=== PATIENT | female | born 1970 | race American Indian/Alaskan Native ===

== ENCOUNTER 2016-07-15 08:51 | Day surgery (SDC) | payer MEDICARE ==
[2016-07-13 11:10] LABS: Basophils % (Auto) 0.2 % (0.0-1.8); Eosinophils % (Auto) 3.3 % (0.0-4.3); Hematocrit 33.4 % (30.3-42.9); Hemoglobin 10.7 gm/dl (10.1-14.3); Mean Corpuscular HGB Conc 32 % (30-34); Mean Corpuscular Volume 79 fl (79-97); Platelet Count 257 K/mm3 (140-440); Red Blood Count 4.23 M/mm3 (3.65-5.03); Red Cell Distribution Width 15.8 % (13.2-15.2); White Blood Count 7.6 K/mm3 (4.5-11.0)
[2016-07-13 11:12] LABS: Mean Corpuscular Hemoglobin 25 pg (28-32)
[2016-07-13 11:28] LABS: Alanine Aminotransferase 16 units/L (7-56); Albumin 3.8 g/dL (3.9-5); Albumin/Globulin Ratio 1.3 %; Alkaline Phosphatase 82 units/L (35-129); Anion Gap 16 mmol/L; Bilirubin,Total 0.2 mg/dL (0.1-1.2); Blood Urea Nitrogen 10 mg/dL (7-17); Calcium 8.6 mg/dL (8.4-10.2); Carbon Dioxide 25 mmol/L (22-30); Chloride 106.3 mmol/L (98-107); Glucose 80 mg/dL (65-100); Potassium 3.5 mmol/L (3.6-5.0); Sodium 144 mmol/L (137-145); Total Protein 6.8 g/dL (6.3-8.2)
--- NOTE | 2016-07-13 11:37 | Anesthesia Consultation ---
<WENDI DAVIS - Last Filed: 07/13/16 11:34> Anesthesia Consult and Med Hx Date of service: 07/13/16 - Airway Anesthetic Teeth Evaluation: Good ROM Head & Neck: Adequate Mental/Hyoid Distance: Adequate Mallampati Class: Class I Intubation Access Assessment: Probably Good - Pulmonary Exam CTA: Yes - Cardiac Exam Cardiac Exam: RRR - Pre-Operative Health Status ASA Pre-Surgery Classification: ASA3 Proposed Anesthetic Plan: General - Pulmonary Hx Asthma: Yes (uses o2 @2l/min via nc at night) SOB: Yes (with movement/exercise) COPD: Yes Home Oxygen Therapy: Yes (every night, daytime use as needed) Hx Pneumonia: Yes (01/2016 was hospitalized) Hx Sleep Apnea: No (cannot lay flat) - Cardiovascular System Hx Hypertension: Yes (x 4-5 yrs) Hx Coronary Artery Disease: Yes Hx Angina: Yes (negative stress test 2013 as per pt) Hx Cardia Arrhythmia: Yes (occasional palpitations and tachycardia) Hx Heart Murmur: Yes - Central Nervous System Hx Neuromuscular Disorder: Yes (Lupus; peudotumor cerebri) Hx Seizures: No CVA: Yes (TIA 10 years agot) Hx Back Pain: Yes Hx Psychiatric Problems: Yes - Gastrointestinal Hx Gastroesophageal Reflux Disease: Yes (with certain foods) - Endocrine Hx Insulin Dependent Diabetes: Yes - Hematic Hx Anemia: Yes - Other Systems Hx Cancer: No - Additional Comments Anesthesia Medical History Comments: Lupus <MACK GREER - Last Filed: 07/15/16 09:24> Anesthesia Consult and Med Hx - Cardiac Exam Anesthetic Concerns: Patient is on chronic steroid therapy and will recieve periop steroid coverage.
[2016-07-15] MEDS ORDERED: DILAUDID IV PRN (09:22)
[2016-07-15] MEDS ORDERED: NORCO 5/325 PO PRN (09:22)
[2016-07-15] MEDS ORDERED: ZOFRAN IV PRN (09:22)
--- NOTE | 2016-07-15 09:26 | Anesthesia Day of Surgery ---
Anesthesia Day of Surgery - Day of Surgery Patient Examined: Yes Patient H&P Reviewed: Yes Patient is NPO: Yes Beta Blockers: No (No longer taking beta blockers)
--- NOTE | 2016-07-15 09:37 | Short Stay Summary ---
Short Stay Documentation Date of service: 07/15/16 Narrative H&P: 46y/o with chronic right sided pelvic pain. Pelvic ultrasound demonstrates a small right ovarian mass. Patient reports worsening of her pain and discomfort. - History Principal diagnosis: Chronic pelvic pain; Adnexal mass Past Medical History: arthritis, diabetes, hypertension, other (lupus; fibromyalgia;asthma) Past Surgical History: cholecystectomy, hernia repair, Other ([place]; BTL) Social history: single - Allergies and Medications Current Medications: Allergies No Known Allergies Allergy (Verified 07/08/16 15:53) Home Medications Medication Instructions Recorded Confirmed Last Taken Type Gabapentin [Neurontin] 300 mg PO BID 10/16/13 07/08/16 05/31/14 21:00 History 300 MG Hydroxychloroquine [Plaquenil] 200 mg PO BID 10/16/13 07/08/16 06/01/14 05:30 History 200 MG Metoprolol [Lopressor TAB] 25 mg PO BID 10/16/13 07/08/16 06/01/14 05:30 History 25 MG Pantoprazole [Protonix TAB] 40 mg PO BID 10/16/13 07/08/16 06/01/14 05:30 History 40 MG Potassium Chloride 20 meq PO BID 10/16/13 07/08/16 05/31/14 21:00 History 20 meq Promethazine [Phenergan TAB] 25 mg PO BID 10/16/13 07/08/16 06/01/14 05:30 History 25 MG Simvastatin [Zocor TAB] 40 mg PO QDAY 10/16/13 07/08/16 05/31/14 21:00 History 40 mg hydrOXYzine HCL [Atarax] 25 mg PO BID 10/16/13 07/08/16 05/31/14 21:00 History 25 mg predniSONE [Deltasone] 40 mg PO BID 10/16/13 07/08/16 05/31/14 21:00 History 40 mg ALBUTEROL NEB's [Proventil 0.083% 2.5 mg IH TID 10/27/13 07/08/16 05/31/14 21: 00 History NEBS] 2.5 MG Fluticasone/Salmeterol [Advair 2 puff IH BID 10/27/13 07/08/16 06/01/14 05:30 History Diskus 500-50 mcg] 2 puffs ALPRAZolam [Xanax TAB] 0.5 mg PO TID 05/29/14 07/08/16 05/31/14 21:00 History 0.5 MG Butalb/Acetaminophen/Caffeine 1 cap PO Q4HR PRN 05/29/14 07/08/16 05/31/14 21: 00 History [Fioricet 50-300-40 mg CAP] 1 CAP Furosemide [Lasix] 40 mg PO DAILY 05/29/14 07/08/16 05/31/14 21:00 History 40 MG Oxycodone HCl [OxyCONTIN] 15 mg PO Q6HR 05/29/14 07/08/16 06/01/14 05:30 History 15 MG Topiramate [Topamax TAB] 50 mg PO HS 05/29/14 07/08/16 05/31/14 21:00 History 50 MG Verapamil HCl 180 mg PO DAILY 05/29/14 07/08/16 06/01/14 05:30 History 180 MG acetaZOLAMIDE [Diamox TAB] 250 mg PO QDAY 05/29/14 07/08/16 05/31/14 21:00 History 250 MG Carisoprodol [Soma] 350 mg PO TID 06/01/14 07/08/16 05/31/14 21:00 History 350 mg oxyCODONE /ACETAMINOPHEN [Percocet 2 tab PO Q6H PRN #30 tablet 06/07/14 Unknown Rx 5/325 mg] Insulin Aspart Prot/Aspart(Nf) 1 units SQ CONT 07/08/16 07/08/16 Unknown History [Novolog Mix 70/30] Active Medications Acetaminophen/Hydrocodone Bitart ([place] 5/325) 2 each PO ONCE PRN PRN Reason: Pain, Moderate (4-6) Stop: 07/15/16 18:00 Famotidine (Pepcid) 20 mg IV PREOP NR Stop: 07/15/16 23:59 Hydromorphone HCl (Dilaudid) 0.5 mg IV Q10MIN PRN PRN Reason: Pain , Severe (7-10) Stop: 07/15/16 18:00 Sodium Chloride (Nacl 0.9% 1000 Ml) 1,000 mls @ 100 mls/hr IV DIRECT SCOTT Methylprednisolone Sodium Succinate (Solu-Medrol) 125 mg IV PREOP NR Stop: 07/15/16 23:59 Midazolam HCl (Versed) 2 mg IV PREOP NR Stop: 07/15/16 23:59 Ondansetron HCl (Zofran) 4 mg IV ONCE PRN PRN Reason: Nausea And Vomiting Stop: 07/15/16 09:23 - Physical exam General appearance: no acute distress Integumentary: no rash HEENT: Atraumatic Lungs: Clear to auscultation Breasts: deferred, mass Gastrointestinal: normal Female Genitourinary: deferred Rectal Exam: deferred - Brief post op/procedure progress note Date of procedure: 07/15/16 Pre-op diagnosis: pelvic pain; right adnexal mass Post-op diagnosis: same Procedure: Laparoscopy Right salpingo-oophorectomy Left ovarian cystectomy Anesthesia: GETA Surgeon: MILTON DUPONT Estimated blood loss: minimal Pathology: list (right ovary and tube; left ovarian cyst) Specimen disposition: to lab Condition: stable - Hospital course Hospital course: The patient was admitted the day of surgery underwent a laparoscopy and right salpingo-oophorectomy. Please see operative note for details of surgery. The patient was discharged when she met discharge criteria. Her postoperative course was uneventful. - Disposition Condition at discharge: Good Disposition: DISCHARGED TO HOME OR SELFCARE Short Stay Discharge Plan Activity: other (pelvic rest for 1 week) Diet: diabetic Additional Instructions: Follow-up in 2-[address] Garcia Prescriptions: Ibuprofen [Motrin] 800 mg PO Q8HR PRN #60 tablet PRN Reason: Pain oxyCODONE /ACETAMINOPHEN [Percocet 5/325] 1 tab PO Q6HR PRN #30 tablet PRN Reason: Pain
[2016-07-15] MEDS ORDERED: SUBLIMAZE ONE (10:00)
[2016-07-15] MEDS ORDERED: DIPRIVAN 10 MG/ML IV ONE (10:00)
[2016-07-15] MEDS ORDERED: VERSED IV NR (10:00)
[2016-07-15] MEDS ORDERED: XYLOCAINE MPF 2% ONE (10:00)
[2016-07-15] MEDS ORDERED: PEPCID IV NR (10:00)
[2016-07-15] MEDS ORDERED: NACL 0.9% 1000 ML 1,000 ML IV SCH (10:00)
[2016-07-15] MEDS ORDERED: ZEMURON IV ONE (10:00)
[2016-07-15] MEDS ORDERED: NEO SYNEPHRINE/NS Syringe(OR USE) IV ONE (10:48)
[2016-07-15] MEDS ORDERED: QUELICIN ONE (11:05)
[2016-07-15] MEDS ORDERED: ROBINUL ONE ×2 (11:20)
[2016-07-15] MEDS ORDERED: NEOSTIGMINE ONE (11:20)
[2016-07-15] MEDS ORDERED: DILAUDID ONE (11:24)
[2016-07-15] MEDS ORDERED: MARCAINE 0.5% 30 ML INFILTRATI ONE (11:24)
[2016-07-15] MEDS ORDERED: NACL 0.9% IR ONE (11:44)
[2016-07-15] MEDS ORDERED: MARCAINE 0.5% INFILTRATI ONE (11:44)
[2016-07-15] MEDS ORDERED: NACL 0.9% 1000 ML 1,000 ML ONE (12:17)
[2016-07-15] MEDS ORDERED: TORADOL ONE (12:22)
--- NOTE | 2016-07-15 12:49 | Operative Report ---
Operative Report Operative Report: Date of surgery: 07/15/2016 Preoperative diagnosis: Chronic pelvic pain; right adnexal mass Postoperative diagnosis: Same as above; left ovarian cyst Procedure: Laparoscopy; right salpingo-oophorectomy; left ovarian cystectomy Surgeon: Shelia Garcia M.D. Anesthesia: General endotracheal anesthesia Estimated blood loss: Minimal Findings: Right tube and ovary densely adherent to the right pelvic sidewall; a hemorrhagic left ovarian cyst Pathology: Right tube and ovary; left ovarian cyst Indication: 46-year-old with a history of chronic pelvic pain occurring on the right side. The patient elected to undergo removal of her right tube and ovary. Procedure: The patient was taken to the operating room and given general endotracheal anesthesia without complication. The patient is prepped and draped in a normal sterile fashion. A sponge stick was placed in the patient's vagina secondary to her history of a prior total abdominal hysterectomy. Attention was then turned to the patient's abdomen where a 5 mm infraumbilical skin incision was then made. A Veress needle was placed and peritoneal entry was verified water-filled syringe. Insufflation of the peritoneal cavity was performed with CO2 gas. A 5 mm trocar was placed and the laparoscope was then inserted. The patient was then placed in Trendelenburg. A 5 mm suprapubic skin incision was then made. Under direct visualization a 5 mm trocar was then placed. General survey of the patient's abdomen revealed a shunt in place; left ovarian hemorrhagic cyst; adherent right adnexa to the right pelvic sidewall. An additional left lateral 10 mm trocar was then placed under direct visualization. The right ovary and 2 were related with a grasper. A LigaSure device was used in order to coagulate the infundibulopelvic ligament. As noted the adnexa was adherent to the right pelvic sidewall. Sharp dissection had to be performed with the monopolar scissors in order to release the adnexa from the right pelvic sidewall and vaginal cuff. An Endo Catch bag was then placed through the 10 mm trocar. The tube and ovary were then removed and the Endo Catch bag. The left ovary was then grasped. The monopolar scissors were then used to remove the left hemorrhagic cyst. The cyst wall was sent to pathology. A Soto Huff was used in order to close the fascia of the 10 mm incision. The 5 mm trocar was then removed. The pneumoperitoneum was then released. The 5 mm trocar laparoscope was then removed. The skin incisions were then closed with 4-0 Monocryl. The incisions were injected with quarter percent Marcaine. Dressings were applied to the incision. The vaginal instruments were then removed atraumatically. Then successfully extubated and taken to the recovery room. All sponge laps and needle counts were correct 2.
--- NOTE | 2016-07-15 13:22 | Post Anesthesia Evaluation ---
- Post Anesthesia Evaluation Patient Participated: Yes Airway Patent: Yes Stable Respiratory Function: Yes Temp > 96.8F: Yes Pain Manageable: Yes Adequeate Hydration: Yes Anesthesia Complications: No Block Receding Appropriately: Not Applicable
[2016-07-15] MEDS ORDERED: PHENERGAN PR PRN (15:05)
[2016-07-15 17:02] VITALS: BP 112/78
== END 2016-07-15 15:30 | disposition home or self-care (01) ==
LOC: OR 08:51
PROVIDERS: ATTEND Obstetrics & Gynecology
DX: N83.202 Unspecified ovarian cyst, left side (principal); N83.01 Follicular cyst of right ovary; N83.8 Other noninflammatory disorders of ovary, fallopian tube and broad ligament; M19.90 Unspecified osteoarthritis, unspecified site; E11.9 Type 2 diabetes mellitus without complications; I10 Essential (primary) hypertension; K21.9 Gastro-esophageal reflux disease without esophagitis; I25.10 Atherosclerotic heart disease of native coronary artery without angina pectoris; J45.909 Unspecified asthma, uncomplicated; J44.9 Chronic obstructive pulmonary disease, unspecified; D64.9 Anemia, unspecified; Z98.51 Tubal ligation status; Z90.49 Acquired absence of other specified parts of digestive tract; Z98.890 Other specified postprocedural states; Z79.899 Other long term (current) drug therapy; Z90.710 Acquired absence of both cervix and uterus; Z99.81 Dependence on supplemental oxygen; Z87.01 Personal history of pneumonia (recurrent); Z86.73 Personal history of transient ischemic attack (TIA), and cerebral infarction without residual deficits
CPT/HCPCS: 36415; 58661; 58662; 80053; 82962; 85025; 88305; J0330; J1170; J1885; J2250; J2405; J2704; J2710; J2930; J3010; J7030; J2370